=== PATIENT | female | born 1995 | race Caucasian/White ===

== ENCOUNTER → 2017-08-01 | Outpatient (CLI) | payer OTHER ==
[2017-08-01 14:05] LABS: BASO % 0.2 % (0.0-1.0); EOS % 0.5 % (0.0-3.0); HEMATOCRIT 38.6 % (36.0-47.0); IMMATURE GRANULOCYTE % 0.4 % (0-3.0); LYMPH # 1.2 10^3/uL (1.5-6.5); LYMPH % 14.5 % (24.0-44.0); MEAN CORPUSCULAR HEMOGLOBIN 30.2 pg (27.0-33.0); MEAN CORPUSCULAR HGB CONC 33.7 g/dl (32.0-36.5); MEAN CORPUSCULAR VOLUME 89.8 fl (80.0-96.0); MONO # 0.5 10^3/uL (0.0-0.8); MONO % 6.1 % (0.0-5.0); NEUTROPHILS # 6.7 10^3/uL (1.8-7.7); NEUTROPHILS % 78.3 % (36.0-66.0); PLATELET COUNT, AUTOMATED 143 10^3/uL (150-450); RED CELL DISTRIBUTION WIDTH 12.7 % (11.5-14.5); WHITE BLOOD COUNT 8.5 10^3/uL (4.0-10.0)
[2017-08-01 17:26] LABS: CHLAMYDIA DNA AMPLIFICATION NEGATIVE (NEGATIVE); GC DNA AMPLIFICATION NEGATIVE (NEGATIVE)
[2017-08-02 12:01] LABS: RUBELLA IgG QUALITATIVE IMMUNE (IMMUNE)
[2017-08-02 12:07] LABS: HBsAg Prenatal NEGATIVE (NEGATIVE)
[2017-08-02 12:28] LABS: HEPATITIS C VIRUS ABY INDEX 0.1 INDEX (<0.8)
[2017-08-02 12:33] LABS: HIV 1&2 SCREEN CENTAUR NEGATIVE (NEGATIVE)
== END ==
LOC: M SMT 11:21
DX: Z36.89 Encounter for other specified antenatal screening (principal); Z3A.09 9 weeks gestation of pregnancy
CPT/HCPCS: 86762

== ENCOUNTER → 2017-10-10 | Outpatient (CLI) | payer OTHER | LOC: M RAD 09:08 | DX: Z34.82 Encounter for supervision of other normal pregnancy, second trimester (principal); Z36.89 Encounter for other specified antenatal screening; Z3A.19 19 weeks gestation of pregnancy | CPT/HCPCS: 76811 ==

== ENCOUNTER → 2017-11-11 | Outpatient (CLI) | payer OTHER | LOC: M RAD 07:28 | DX: Z36.9 Encounter for antenatal screening, unspecified (principal); Z3A.24 24 weeks gestation of pregnancy | CPT/HCPCS: 76816 ==

== ENCOUNTER 2017-11-28 08:03 | Outpatient (CLI) | payer OTHER ==
[2017-11-28 09:06] LABS: BEDSIDE GLUCOSE 113 MG/DL (70-105)
[2017-11-28 10:24] LABS: HEMATOCRIT 32.5 % (36.0-47.0); HEMOGLOBIN 10.6 g/dl (12.0-15.5); MEAN CORPUSCULAR HEMOGLOBIN 30.4 pg (27.0-33.0); MEAN CORPUSCULAR HGB CONC 32.6 g/dl (32.0-36.5); MEAN CORPUSCULAR VOLUME 93.1 fl (80.0-96.0); RED BLOOD COUNT 3.49 10^6/uL (4.00-5.40); RED CELL DISTRIBUTION WIDTH 12.7 % (11.5-14.5); WHITE BLOOD COUNT 10.9 10^3/uL (4.0-10.0)
[2017-11-28 11:19] LABS: PLATELET COUNT, AUTOMATED 84 10^3/uL (150-450)
[2017-11-28 11:20] LABS: IMMATURE PLATELET FRACTION % 20.1 % (0.0-9.6); PLATELET F 98
== END 2017-11-28 10:46 | disposition home or self-care (01) ==
LOC: M LDO 08:03
DX: O99.412 Diseases of the circulatory system complicating pregnancy, second trimester (principal); R00.2 Palpitations; R42 Dizziness and giddiness; Z3A.26 26 weeks gestation of pregnancy
CPT/HCPCS: G0463

== ENCOUNTER → 2017-12-13 | Outpatient (CLI) | payer OTHER ==
[2017-12-13 13:44] LABS: HEMATOCRIT 33.2 % (36.0-47.0); HEMOGLOBIN 10.7 g/dl (12.0-15.5); MEAN CORPUSCULAR HEMOGLOBIN 30.3 pg (27.0-33.0); MEAN CORPUSCULAR HGB CONC 32.2 g/dl (32.0-36.5); MEAN CORPUSCULAR VOLUME 94.1 fl (80.0-96.0); RED BLOOD COUNT 3.53 10^6/uL (4.00-5.40); RED CELL DISTRIBUTION WIDTH 13.8 % (11.5-14.5); WHITE BLOOD COUNT 8.1 10^3/uL (4.0-10.0)
[2017-12-13 13:54] LABS: PLATELET COUNT, AUTOMATED 81 10^3/uL (150-450)
[2017-12-13 13:57] LABS: GLUCOSE CHALLENGE TEST 1 HOUR 108 MG/DL (LESS THAN 140)
== END ==
LOC: M SMT 09:10
DX: Z36.89 Encounter for other specified antenatal screening (principal)
CPT/HCPCS: 82950

== ENCOUNTER → 2018-01-01 | Outpatient (CLI) | payer OTHER ==
[2018-01-01 18:37] LABS: HEMATOCRIT 34.7 % (36.0-47.0); HEMOGLOBIN 11.1 g/dl (12.0-15.5); MEAN CORPUSCULAR HEMOGLOBIN 29.8 pg (27.0-33.0); RED BLOOD COUNT 3.73 10^6/uL (4.00-5.40); RED CELL DISTRIBUTION WIDTH 13.3 % (11.5-14.5); WHITE BLOOD COUNT 8.3 10^3/uL (4.0-10.0)
[2018-01-01 18:46] LABS: PLATELET COUNT, AUTOMATED 94 10^3/uL (150-450)
[2018-01-01 18:51] LABS: IMMATURE PLATELET FRACTION % 22.6 % (0.0-9.6)
== END ==
LOC: M SMT 13:37
DX: Z34.83 Encounter for supervision of other normal pregnancy, third trimester (principal); Z36.89 Encounter for other specified antenatal screening
CPT/HCPCS: 85049

== ENCOUNTER → 2018-01-30 | Outpatient (REF) | payer OTHER | LOC: M LAB REF 13:06 | DX: O99.013 Anemia complicating pregnancy, third trimester (principal) ==

== ENCOUNTER → 2018-01-30 | Outpatient (CLI) | payer OTHER ==
[2018-01-30 13:41] LABS: BASO % 0.3 % (0.0-1.0); EOS % 0.5 % (0.0-3.0); HEMATOCRIT 33.5 % (36.0-47.0); HEMOGLOBIN 10.8 g/dl (12.0-15.5); IMMATURE GRANULOCYTE % 0.8 % (0-3.0); LYMPH # 1.3 10^3/uL (1.5-6.5); MEAN CORPUSCULAR HEMOGLOBIN 29.3 pg (27.0-33.0); MEAN CORPUSCULAR HGB CONC 32.2 g/dl (32.0-36.5); MONO # 0.5 10^3/uL (0.0-0.8); NEUTROPHILS # 5.4 10^3/uL (1.8-7.7); NEUTROPHILS % 73.4 % (36.0-66.0); RED BLOOD COUNT 3.68 10^6/uL (4.00-5.40); RED CELL DISTRIBUTION WIDTH 13.2 % (11.5-14.5); WHITE BLOOD COUNT 7.4 10^3/uL (4.0-10.0)
[2018-01-30 13:47] LABS: PLATELET COUNT, AUTOMATED 87 10^3/uL (150-450)
[2018-01-30 13:48] LABS: IMMATURE PLATELET FRACTION % 26.3 % (0.0-9.6)
== END ==
LOC: M SMT 10:27
DX: O99.013 Anemia complicating pregnancy, third trimester (principal)
CPT/HCPCS: 85049

== ENCOUNTER → 2018-02-17 | Outpatient (CLI) | payer OTHER ==
[~2018-02-17] MED LIST: FERR325T3 PO; IBUP-1114 PO; MAPA500T17 PO; PRED20TA PO; PRENTAB9 PO
[2018-02-17 13:24] LABS: HEMATOCRIT 32.1 % (36.0-47.0); HEMOGLOBIN 10.3 g/dl (12.0-15.5); MEAN CORPUSCULAR HEMOGLOBIN 28.9 pg (27.0-33.0); MEAN CORPUSCULAR HGB CONC 32.1 g/dl (32.0-36.5); MEAN CORPUSCULAR VOLUME 89.9 fl (80.0-96.0); RED BLOOD COUNT 3.57 10^6/uL (4.00-5.40); WHITE BLOOD COUNT 8.2 10^3/uL (4.0-10.0)
[2018-02-17 13:26] LABS: PLATELET COUNT, AUTOMATED 70 10^3/uL (150-450)
== END ==
LOC: M SMT 09:28
PROVIDERS: ATTEND Obstetrics & Gynecology
DX: O99.013 Anemia complicating pregnancy, third trimester (principal)

== ENCOUNTER → 2018-02-21 | Outpatient (CLI) | payer OTHER ==
[~2018-02-21] MED LIST changes: -MAPA500T17 PO; +MAPA500T2 PO
[2018-02-21 13:12] LABS: HEMATOCRIT 32.1 % (36.0-47.0); HEMOGLOBIN 10.3 g/dl (12.0-15.5); MEAN CORPUSCULAR HEMOGLOBIN 28.7 pg (27.0-33.0); MEAN CORPUSCULAR HGB CONC 32.1 g/dl (32.0-36.5); MEAN CORPUSCULAR VOLUME 89.4 fl (80.0-96.0); RED BLOOD COUNT 3.59 10^6/uL (4.00-5.40); WHITE BLOOD COUNT 10.6 10^3/uL (4.0-10.0)
[2018-02-21 13:19] LABS: PLATELET COUNT, AUTOMATED 80 10^3/uL (150-450)
== END ==
LOC: M SMT 11:38
PROVIDERS: ATTEND Obstetrics & Gynecology
DX: D69.6 Thrombocytopenia, unspecified (principal)

== ENCOUNTER 2018-03-05 04:46 | Inpatient (IN) | payer OTHER ==
[2018-03-05] VITALS (26 sets, daily range): BP systolic 121–170; BP diastolic 75–119
[~2018-03-05] VITALS: Ht 162.6 cm; Wt 81.7 kg
[~2018-03-05 04:46] MED LIST changes: -IBUP-1114 PO; -MAPA500T2 PO; -PRED20TA PO
[2018-03-05] MEDS ORDERED: PRED20TA PO (05:13)
[2018-03-05] MEDS ORDERED: LACTATED RINGER'S 1000 ML IV STA (05:20)
[2018-03-05] MEDS ORDERED: PENICILLIN G POTASSIUM IV 5 MU in D5W MINI-BAG PLUS 100 ML IV STA (05:20)
--- NOTE | 2018-03-05 05:47 | NUR ---
L&D H&P HPI: 23 year old at 40+1 weeks estimated gestation. Expected date of confinement: 03/04/18. dated by LMP, consistent with first TM US. Presents today complaining of frequent, painful contractions for the past several hours. Denies vaginal bleeding, loss of fluid. Reports regular movement. course complicated by: Thrombocytopenia: gestational vs ITP. Plts on 02/28: 88K (oneida of 70K on 02/17), taking Prednisone 40mg daily. First TM plts: 143k Anemia, taking FeSO4 labs: Blood type A+, antibody screen negative, rubella immune, VDRL nonreactive , hepatitis B surface antigen negative, HIV negative, hepatitis C antibody negative, GC/CT negative, aneuploidy/maternal serum screening: not done, 1 hour glucose challenge test: 108, GBS positive Vaccinations: Tdap 02/05/18 Radiology/OB US: no anomalies or placental abnormalities detected. History Past medical history: none Surgical history: tympanostomy Medications: PNV Allergies: NKDA [employer] history: no dysplasia or STI/gHSV OB history: G1 Social history: no t/e/d Family history: no MR or VTE Objective Vitals: Normotensive, normal heart rate, afebrile Heart: Regular rate and rhythm. No murmurs, rubs or gallops. Lungs: Clear to auscultation bilaterally. No wheezes, crackles, rales or rhonchi. Abdomen: Uterine fundal height consistent with dates. No guarding or rebound tenderness. Extremities: No clubbing, cyanosis or edema. Normal deep tendon reflexes. Sterile vaginal exam: 5 cm, 90 %effacement, -3 station, cephalic, intact External monitoring: heart rate category 1 Tocodynamometer: contractions occurring every 2-4 min Assessment/Plan 23 year old at 40+1 weeks gestation. Diagnosis: active labor at term, thrombocytopenia. Reassuring and maternal status. -Admit to labor and delivery with routine labs and orders -External monitoring and tocodynamometer -Pediatrics and anesthesia consultations as needed. -GBS prophylaxis with IV penicillin Dr. Naeem Cuellar, DO, FACOG
[2018-03-05 06:28] LABS: HEMATOCRIT 32.1 % (36.0-47.0); HEMOGLOBIN 10.2 g/dl (12.0-15.5); MEAN CORPUSCULAR HEMOGLOBIN 27.7 pg (27.0-33.0); MEAN CORPUSCULAR HGB CONC 31.8 g/dl (32.0-36.5); MEAN CORPUSCULAR VOLUME 87.2 fl (80.0-96.0); RED BLOOD COUNT 3.68 10^6/uL (4.00-5.40); WHITE BLOOD COUNT 11.9 10^3/uL (4.0-10.0)
[2018-03-05 06:58] LABS: PLATELET COUNT, AUTOMATED 64 10^3/uL (150-450)
[2018-03-05] MEDS ORDERED: BUTORPHANOL 2 MG/ML INJ (J0595) IV ONE (07:15)
[2018-03-05] MEDS ORDERED: PROMETHAZINE INJ 25 MG/ML VIAL (J2550) IV ONE (07:15)
[2018-03-05] MEDS: LR 1,000 ML IV SCH ×2 (07:41→15:47)
[2018-03-05] MEDS ORDERED: **PENDING PCN ENTRY XX SCH (09:00)
[2018-03-05 09:31] LABS: ALT/SGPT 17 U/L (12-78); BILIRUBIN,TOTAL 0.5 MG/DL (0.2-1.0); CREATININE FOR GFR 0.86 MG/DL (0.55-1.30); GLOMERULAR FILTRATION RATE > 60.0 (>60); LDH LACTATE DEHYDROGENASE 198 U/L (84-246); URIC ACID 6.6 MG/DL (2.6-6.0)
[2018-03-05 09:56] LABS: TOTAL PROTEIN,RANDOM URINE 48.2 MG/DL (0.0-12.0)
[2018-03-05] MEDS: PENICILLIN G POTASSIUM IV 2.5 MU in APPROPRIATE DILUENT 1 EA IV SCH ×2 (09:58→14:09)
[2018-03-05] MEDS ORDERED: CALCIUM CARBONATE 500 MG CHEW U/D PO PRN (11:15)
[2018-03-05] MEDS ORDERED: OXYTOCIN 30 UNITS IN 0.9% NaCl 500ML IV BAG (J2590) As Ordered ONE (16:28)
[2018-03-05 18:27] LABS: CORD GAS ABE A -8.5; CORD GAS ABE V -7.3; CORD GAS HCO3 A 21.2 MEQ/L; CORD GAS HCO3 V 17.4 MEQ/L; CORD GAS O2 SAT A 43.4 %; CORD GAS O2 SAT V 80.8 %; CORD GAS PCO2 A 59.3 mmHg; CORD GAS PCO2 V 33.9 mmHg; CORD GAS PH A 7.171 UNITS; CORD GAS PH V 7.329 UNITS; CORD GAS PO2 A 21.5 mmHg; CORD GAS PO2 V 36.1 mmHg; CORD GAS SBC A 16.5 MEQ/L; CORD GAS SBC V 18.3 MEQ/L; CORD GAS TCO2 V 18.5 MEQ/L
[2018-03-05] MEDS ORDERED: LIDOCAINE 1% MDV 20ML VIAL SC ONE (19:00)
--- NOTE | 2018-03-05 19:25 | DN ---
DATE OF DELIVERY: 03/05/2018 Lynne is a 23-year-old 1, para 1-0-0-1 now admitted to labor and delivery in active labor. She coped with her labor with physiological coping mechanisms. She progressed to full dilation at 1716. She pushed to a normal spontaneous vaginal delivery of a live male infant in occiput anterior (OA) position with restitution to left occiput transverse (LOT) position at 1759. There was no nuchal cord. The shoulders delivered with gentle downward traction and the corpus immediately followed. [place] male was placed on maternal abdomen, crying and active. Mouth and nares were bulb suctioned. Cord was clamped times two and cut by the father of the baby under my direction. Cord gases were obtained. Arterial cord pH 7.171, base excess -8.5. Venous cord pH 7.329, base excess -7.3. Cord blood was also obtained. Uterine hemostasis was achieved with IV Pitocin rapid infusion and uterine fundal massage. Estimated blood loss 350 mL. Perineum and vagina inspected and noted to have a first-degree midline laceration and a left labial laceration. Laceration was infiltrated with 1% lidocaine and repaired with #3-0 Rapide in the usual fashion. The male weighed 8 pounds 15 ounces, 4050 grams, at 8 and 9. Mom is going to breastfeed her son and the family have named him Jesus. At the close of delivery lap counts, needle counts, instrument counts were correct and verified.
[2018-03-05] MEDS ORDERED: OXYTOCIN DRIP 30 UNITS in APPROPRIATE DILUENT 1 EA IV SCH (21:47)
[2018-03-05] MEDS ORDERED: METHYLERGONOVINE MALEATE 0.2 MG TAB PO PRN (22:00)
[2018-03-05] MEDS ORDERED: DIBUCAINE 1% OINTMENT 30GM TOP PRN (22:00)
[2018-03-05] MEDS ORDERED: RHOGAM 300 MCG (1500 IU) INJ (J2790) IM SCH (22:00)
[2018-03-05] MEDS ORDERED: DOCUSATE SODIUM 100 MG CAP PO PRN (22:00)
[2018-03-05] MEDS ORDERED: MEASLES,MUMPS,RUBELLA VACCINE INJ (MMR-II) (90707) SC SCH (22:00)
[2018-03-05] MEDS: ACETAMINOPHEN 500 MG TAB PO PRN (22:13)
[2018-03-06] MEDS: IBUPROFEN 800 MG TAB PO PRN ×3 (02:43→22:37)
--- NOTE | 2018-03-06 05:46 | IPNPDOC ---
Text Note Date of Service The patient was seen on 03/06/18. NOTE Day 1 Status post spontaneous vaginal delivery Subjective Pain is controlled. Lochia decreasing. Voiding spontaneously. Passing flatus. Tolerating a regular diet. Ambulating without assistance. Denies any subjective fever/chills/nausea/headache/visual changes/shortness of breath/chest pain. Breast feeding. Objective Vitals: Normotensive, normal heart rate, afebrile, adequate urine output. Heart: regular, rate, and rhythm. no murmurs/gallops/rubs Lungs: clear to auscultation bilaterally, no wheezes/crackles/rales/ronchi Abd: soft, nontender, nondistended, uterine fundus is at the umbilicus and firm. Ext: no significant edema, nontender, negative Alma's bilaterally. Assessment/Plan: Day 1. Recovering well. Hemodynamically stable, afebrile, pain control adequate. -Routine care -Potential discharge to tomorrow -Routine infectious, fever, pain, and bleeding precautions reviewed VS,Hoang, I+O VSHoang, I+O Laboratory Tests 03/05/18 06:12 Red Blood Count 3.68 L, Mean Corpuscular Volume 87.2, Mean Corpuscular Hemoglobin 27.7, Mean Corpuscular Hemoglobin Concent 31.8 L, Red Cell Distribution Width 13.5, Aspartate Amino Transf (AST/SGOT) 14, Alanine Aminotransferase (ALT/SGPT) 17, Lactate Dehydrogenase 198, Total Bilirubin 0.5, Uric Acid 6.6 H Vital Signs Date Time Temp Pulse Resp B/P (MAP) Pulse Ox O2 Delivery O2 Flow Rate FiO2 03/05/18 21:40 99.4 78 18 131/83 (99) 98 Room Air I&O- Last 24 Hours up to 6 AM 03/06/18 06:00 Intake Total 2500 ml Output Total 700 ml Balance 1800 ml GME ATTESTATION GME ATTESTATION My faculty preceptor for this patient encounter was physically present during the encounter and was fully available. All aspects of the patient interview, examination, medical decision making process, and medical care plan development were reviewed and approved by the faculty preceptor. The faculty preceptor is aware and concurs with the plan as stated in the body of this note and will attest to such by his/her cosignature. STEFFEN LANCASTER DO Mar 06, 2018 05:46
[2018-03-06 06:12] VITALS: BP 123/77
[2018-03-06] MEDS ORDERED: LIDOCAINE 1% MDV 20ML VIAL As Ordered ONE (07:18)
[2018-03-06] MEDS: PRENATAL VITAMINS CHEWABLE TABLET PO SCH (08:17)
[2018-03-06] MEDS: ACETAMINOPHEN 500 MG TAB PO PRN ×2 (08:17→19:52)
[2018-03-06 18:00] VITALS: BP 119/74
[2018-03-07 05:47] VITALS: BP 134/80
[2018-03-07] MEDS: PRENATAL VITAMINS CHEWABLE TABLET PO SCH (08:13)
[2018-03-07] MEDS ORDERED: ADACEL/BOOSTRIX VACCINE (DIPHTH/PERTUSS/ACELL/TETANUS)0.5ML SYR (90715) IM ONE (09:00)
[2018-03-07] MEDS: IBUPROFEN 800 MG TAB PO PRN (10:01)
[2018-03-07] MEDS ORDERED: MAPA500T17 PO (11:05)
[2018-03-07] MEDS ORDERED: IBUP-1114 PO (11:05)
== END 2018-03-07 12:20 | disposition home or self-care (01) | DRG 806 ==
LOC: M LDO 04:46 → M LDI 05:22 → M OBS 20:00
PROVIDERS: ADMIT Obstetrics & Gynecology; ATTEND Obstetrics & Gynecology
PROC: 10E0XZZ Delivery of Products of Conception, External Approach (ICD-10-PCS; principal; 2018-03-05)
PROC: 0HQ9XZZ Repair Perineum Skin, External Approach (ICD-10-PCS; 2018-03-05)
DX: O48.0 Post-term pregnancy (principal); Z37.0 Single live birth; O99.12 Other diseases of the blood and blood-forming organs and certain disorders involving the immune mechanism complicating childbirth; O70.0 First degree perineal laceration during delivery; Z3A.40 40 weeks gestation of pregnancy; D69.6 Thrombocytopenia, unspecified

== ENCOUNTER → 2018-04-21 | Outpatient (CLI) | payer OTHER ==
[~2018-04-21] MED LIST changes: +IBUP-1114 PO; +MAPA500T2 PO; +PRED20TA PO
[2018-04-21 17:42] LABS: BASO % 0.5 % (0.0-1.0); EOS # 0.1 10^3/uL (0.0-0.50); EOS % 1.2 % (0.0-3.0); HEMATOCRIT 40.6 % (36.0-47.0); HEMOGLOBIN 12.9 g/dl (12.0-15.5); LYMPH # 2.2 10^3/uL (1.5-6.5); LYMPH % 36.8 % (24.0-44.0); MEAN CORPUSCULAR HEMOGLOBIN 27.5 pg (27.0-33.0); MEAN CORPUSCULAR HGB CONC 31.8 g/dl (32.0-36.5); MEAN CORPUSCULAR VOLUME 86.6 fl (80.0-96.0); MONO # 0.4 10^3/uL (0.0-0.8); MONO % 6.7 % (0.0-5.0); NEUTROPHILS # 3.2 10^3/uL (1.8-7.7); NEUTROPHILS % 54.5 % (36.0-66.0); PLATELET COUNT, AUTOMATED 161 10^3/uL (150-450); RED BLOOD COUNT 4.69 10^6/uL (4.00-5.40); WHITE BLOOD COUNT 5.9 10^3/uL (4.0-10.0)
== END ==
LOC: M SMT 14:46
PROVIDERS: ATTEND Advanced Practice Midwife
DX: D69.6 Thrombocytopenia, unspecified (principal)

== ENCOUNTER → 2018-05-28 | Outpatient (REF) | payer OTHER | LOC: M LAB REF 17:21 | PROVIDERS: ATTEND Advanced Practice Midwife | DX: Z12.4 Encounter for screening for malignant neoplasm of cervix (principal) ==

== ENCOUNTER → 2020-03-02 | Outpatient (CLI) | payer SELFPAY | LOC: M LABSMTC 10:32 | PROVIDERS: ATTEND Pediatrics | DX: Z20.828 Contact with and (suspected) exposure to other viral communicable diseases (principal) ==

== ENCOUNTER → 2020-07-13 | Outpatient (REF) | payer OTHER | LOC: M SFHCWAGY 17:22 | PROVIDERS: ATTEND Advanced Practice Midwife | DX: Z12.4 Encounter for screening for malignant neoplasm of cervix (principal) | CPT/HCPCS: G0123; G0463 ==

== ENCOUNTER → 2020-08-24 | Outpatient (REF) | payer OTHER ==
[2020-08-24 16:16] LABS: HEMATOCRIT 39.6 % (36.0-47.0); HEMOGLOBIN 12.9 g/dl (12.0-15.5); MEAN CORPUSCULAR HEMOGLOBIN 29.5 pg (27.0-33.0); MEAN CORPUSCULAR HGB CONC 32.6 g/dl (32.0-36.5); MEAN CORPUSCULAR VOLUME 90.6 fl (80.0-96.0); PLATELET COUNT, AUTOMATED 170 10^3/uL (150-450); RED BLOOD COUNT 4.37 10^6/uL (4.00-5.40); WHITE BLOOD COUNT 8.9 10^3/uL (4.0-10.0)
[2020-08-24 17:06] LABS: HIV 1&2 SCREEN CENTAUR NEGATIVE (NEGATIVE)
== END ==
LOC: M PLALAB 13:43
PROVIDERS: ATTEND Advanced Practice Midwife
DX: O99.341 Other mental disorders complicating pregnancy, first trimester (principal)

== ENCOUNTER → 2020-11-11 | Outpatient (CLI) | payer OTHER ==
--- NOTE | 2020-11-11 10:38 | REP ---
INDICATION: ANATOMY. COMPARISON: None. TECHNIQUE: Transabdominal obstetric sonography. FINDINGS: Scanning through the gravid uterus demonstrates a viable single intrauterine gestation in transverse lie. motion is observed and heart rate is recorded at 142 beats per minute. A anterior placenta is seen, grade 1, without evidence of placenta previa. Closed cervical length is measured at 4.6 cm transabdominally. No extrauterine abnormality is observed. Amniotic fluid is subjectively normal. No anomaly is seen. The following anatomic structures are identified and felt to be sonographically unremarkable: cranium, choroid plexus, cavum, cerebellum and posterior fossa, face and profile, lungs, four-chamber heart with left and right ventricular outflow tract views, diaphragm, left-sided stomach, abdominal wall cord insertion, three-vessel umbilical cord, kidneys and bladder, spine, and upper and lower extremities. Biometry chart: BPD 4.7 cm, 20 weeks 2 days Head circumference 18.1 cm, 20 weeks 4 days Abdominal circumference 15.7 cm, 20 weeks 6 days Femur length 3.4 cm 20, 20 weeks 6 days Humeral length 3.1 cm, 20 weeks 1 day HC AC ratio normal 1.16 Cephalic index normal 0.71 Estimated weight 376 g, 0 lb 13 oz, 72nd percentile for 20 weeks 2 days IMPRESSION: Viable single intrauterine gestation at 20 weeks 4 days by today's composite sonographic criteria. SUYAPA by today's sonography March 27, 2021. No complication identified. Expected gestational age estimate from known SUYAPA of 29 March 2021 is 20 weeks 2 days. <Electronically signed by Chaka Castillo > 11/11/20 [id number]
== END ==
LOC: M WHC 08:50
PROVIDERS: ATTEND Obstetrics & Gynecology
DX: O99.342 Other mental disorders complicating pregnancy, second trimester (principal); Z3A.20 20 weeks gestation of pregnancy; F32.9 Major depressive disorder, single episode, unspecified

== ENCOUNTER → 2020-12-09 | Outpatient (CLI) | payer OTHER ==
[2020-12-09 13:52] LABS: HEMATOCRIT 36.4 % (36.0-47.0); HEMOGLOBIN 11.7 g/dl (12.0-15.5); MEAN CORPUSCULAR HEMOGLOBIN 30.3 pg (27.0-33.0); MEAN CORPUSCULAR HGB CONC 32.1 g/dl (32.0-36.5); MEAN CORPUSCULAR VOLUME 94.3 fl (80.0-96.0); PLATELET COUNT, AUTOMATED 128 10^3/uL (150-450); RED BLOOD COUNT 3.86 10^6/uL (4.00-5.40); WHITE BLOOD COUNT 7.7 10^3/uL (4.0-10.0)
[2020-12-09 15:38] LABS: GC DNA AMPLIFICATION NEGATIVE (NEGATIVE)
== END ==
LOC: M PLALAB 10:56
PROVIDERS: ATTEND Specialist
DX: Z34.82 Encounter for supervision of other normal pregnancy, second trimester (principal)

== ENCOUNTER → 2021-01-06 | Outpatient (CLI) | payer OTHER ==
[2021-01-06 13:33] LABS: HEMATOCRIT 34.9 % (36.0-47.0); HEMOGLOBIN 11.4 g/dl (12.0-15.5); MEAN CORPUSCULAR HEMOGLOBIN 30.6 pg (27.0-33.0); MEAN CORPUSCULAR HGB CONC 32.7 g/dl (32.0-36.5); MEAN CORPUSCULAR VOLUME 93.6 fl (80.0-96.0); PLATELET COUNT, AUTOMATED 109 10^3/uL (150-450); RED BLOOD COUNT 3.73 10^6/uL (4.00-5.40); WHITE BLOOD COUNT 8.3 10^3/uL (4.0-10.0)
== END ==
LOC: M PLALAB 11:31
PROVIDERS: ATTEND Specialist
DX: D69.6 Thrombocytopenia, unspecified (principal)

== ENCOUNTER → 2021-01-23 | Outpatient (REF) | LOC: M LABSMTC 09:25 | PROVIDERS: ATTEND Family Medicine | DX: Z20.822 Contact with and (suspected) exposure to COVID-19 (principal) ==

== ENCOUNTER → 2021-02-27 | Outpatient (CLI) | payer OTHER ==
[~2021-02-27] MED LIST changes: +TUMS750C22 PO; +UNIS25TA3 PO; +ZOLO50TA PO
[2021-02-27 13:27] LABS: HEMATOCRIT 35.6 % (36.0-47.0); HEMOGLOBIN 11.6 g/dl (12.0-15.5); MEAN CORPUSCULAR HEMOGLOBIN 30.3 pg (27.0-33.0); MEAN CORPUSCULAR HGB CONC 32.6 g/dl (32.0-36.5); RED BLOOD COUNT 3.83 10^6/uL (4.00-5.40); WHITE BLOOD COUNT 8.2 10^3/uL (4.0-10.0)
[2021-02-27 14:00] LABS: PLATELET COUNT, AUTOMATED 80 10^3/uL (150-450)
== END ==
LOC: M PLALAB 10:27
PROVIDERS: ATTEND Obstetrics & Gynecology
DX: O99.113 Other diseases of the blood and blood-forming organs and certain disorders involving the immune mechanism complicating pregnancy, third trimester (principal)

== ENCOUNTER → 2021-02-28 | Outpatient (REF) | payer OTHER ==
[~2021-02-28] MED LIST changes: -TUMS750C22 PO; -UNIS25TA3 PO; -ZOLO50TA PO
== END ==
LOC: M SFHCWAGY 17:16
PROVIDERS: ATTEND Obstetrics & Gynecology
DX: Z36.85 Encounter for antenatal screening for Streptococcus B (principal)
CPT/HCPCS: 87081; G0463

== ENCOUNTER → 2021-03-20 | Outpatient (CLI) | payer OTHER ==
[2021-03-20 13:17] LABS: HEMATOCRIT 36.8 % (36.0-47.0); MEAN CORPUSCULAR HEMOGLOBIN 30.1 pg (27.0-33.0); MEAN CORPUSCULAR HGB CONC 32.6 g/dl (32.0-36.5); MEAN CORPUSCULAR VOLUME 92.2 fl (80.0-96.0); PLATELET COUNT, AUTOMATED 85 10^3/uL (150-450); RED BLOOD COUNT 3.99 10^6/uL (4.00-5.40); WHITE BLOOD COUNT 11.6 10^3/uL (4.0-10.0)
== END ==
LOC: M PLALAB 11:51
PROVIDERS: ATTEND Obstetrics & Gynecology
DX: O99.113 Other diseases of the blood and blood-forming organs and certain disorders involving the immune mechanism complicating pregnancy, third trimester (principal); Z3A.00 Weeks of gestation of pregnancy not specified

== ENCOUNTER 2021-03-22 08:32 | Inpatient (IN) | payer OTHER ==
[2021-03-22] VITALS (21 sets, daily range): BP systolic 108–158; BP diastolic 58–102
[~2021-03-22] VITALS: Ht 162.6 cm; Wt 83.1 kg
[2021-03-22] MEDS ORDERED: HOME MED LIST COMPLETE! XX SCH (09:00)
[2021-03-22] MEDS ORDERED: ZOLO50TA PO (09:04)
[2021-03-22] MEDS ORDERED: UNIS25TA3 PO (09:04)
[2021-03-22] MEDS ORDERED: PRED20TA PO (09:04)
[2021-03-22] MEDS ORDERED: TUMS750C22 PO (09:04)
[2021-03-22] MEDS ORDERED: CARBOPROST TROMETHAMINE 250 MCG/ML AMP IM PRN (10:05)
[2021-03-22] MEDS ORDERED: LIDOCAINE 1% MDV 20ML VIAL INFIL PRN (10:05)
[2021-03-22] MEDS ORDERED: METHYLERGONOVINE MALEATE 0.2 MG/ML VIAL (J2210) IM PRN (10:05)
[2021-03-22] MEDS ORDERED: OXYTOCIN DRIP 30 UNITS in IV 1 EA IV PRN ×4 (10:05)
[2021-03-22] MEDS ORDERED: TRANEXAMIC ACID INJection 1,000 MG in NS 100 ML IV PRN (10:05)
[2021-03-22] MEDS: miSOPROStol 50MCG 1/2 TABLET PO SCH ×2 (10:28→15:01)
[2021-03-22 10:35] LABS: HEMATOCRIT 36.6 % (36.0-47.0); MEAN CORPUSCULAR HEMOGLOBIN 30.5 pg (27.0-33.0); MEAN CORPUSCULAR HGB CONC 32.8 g/dl (32.0-36.5); MEAN CORPUSCULAR VOLUME 93.1 fl (80.0-96.0); RED BLOOD COUNT 3.93 10^6/uL (4.00-5.40); WHITE BLOOD COUNT 11.2 10^3/uL (4.0-10.0)
[2021-03-22 10:37] LABS: PLATELET COUNT, AUTOMATED 95 10^3/uL (150-450)
[2021-03-22] MEDS ORDERED: predniSONE 20 MG TAB PO SCH ×2 (18:00→18:05)
[2021-03-22] MEDS ORDERED: OXYTOCIN DRIP 30 UNITS in IV 1 EA IV SCH (19:15)
[2021-03-22] MEDS: LR 1,000 ML IV SCH (19:37)
[2021-03-22 20:08] LABS: HEMATOCRIT 36.1 % (36.0-47.0); HEMOGLOBIN 11.9 g/dl (12.0-15.5); MEAN CORPUSCULAR HEMOGLOBIN 30.4 pg (27.0-33.0); MEAN CORPUSCULAR VOLUME 92.3 fl (80.0-96.0); PLATELET COUNT, AUTOMATED 94 10^3/uL (150-450); RED BLOOD COUNT 3.91 10^6/uL (4.00-5.40)
[2021-03-22] MEDS ORDERED: FENTANYL 2MCG/ML ROPIVACAINE 0.2% IN 0.9% NACL 100ML IVBAG As Ordered ONE (23:12)
[2021-03-22] MEDS ORDERED: ONDANSETRON 4MG/2ML VIAL IV PRN (23:45)
[2021-03-22] MEDS ORDERED: LACTATED RINGER'S 1000 ML IV PRN (23:45)
[2021-03-22] MEDS ORDERED: REFRIGERATOR IV KEYS XX PRN (23:45)
[2021-03-22] MEDS ORDERED: FENTANYL/ROPIVACAINE/NACL BAG 100 ML EPIDURAL SCH (23:45)
[2021-03-22] MEDS ORDERED: EPIDURAL COMMENT XX SCH (23:45)
[2021-03-22] MEDS ORDERED: ePHEDrine SULFATE 25 MG/5 ML(5MG/ML) SYRINGE IV PRN (23:45)
[2021-03-22] MEDS ORDERED: EPIDURAL/PCA KEYS XX PRN (23:45)
[2021-03-22] MEDS ORDERED: NALOXONE INJ 0.4MG/1ML VIAL (J2310 PER 1MG) IV PRN (23:45)
[2021-03-22] MEDS ORDERED: diphenhydrAMINE 50MG/ML VIAL (J1200) IV PRN (23:45)
[2021-03-23] VITALS (29 sets, daily range): BP systolic 95–144; BP diastolic 56–88
[2021-03-23] MEDS: LR 1,000 ML IV SCH (06:00)
[2021-03-23] MEDS ORDERED: ACETAMINOPHEN TAB 650MG DOSE (2X325MG) PO PRN (06:10)
[2021-03-23] MEDS ORDERED: DIBUCAINE 1% OINTMENT 30GM TOP PRN (06:10)
[2021-03-23] MEDS ORDERED: RHOGAM 300 MCG (1500 IU) INJ (J2790) IM SCH (06:10)
[2021-03-23] MEDS ORDERED: IBUPROFEN 800 MG TAB PO PRN (06:10)
[2021-03-23] MEDS ORDERED: DOCUSATE SODIUM 100MG CAPSULE PO PRN (06:10)
[2021-03-23] MEDS ORDERED: ACETAMINOPHEN 500 MG TAB PO PRN (06:10)
[2021-03-23] MEDS ORDERED: IBUPROFEN 600MG TAB PO PRN (06:10)
[2021-03-23] MEDS ORDERED: METHYLERGONOVINE MALEATE 0.2 MG TAB PO PRN (06:10)
[2021-03-23 06:44] LABS: HEMATOCRIT 35.1 % (36.0-47.0); HEMOGLOBIN 11.5 g/dl (12.0-15.5); MEAN CORPUSCULAR HEMOGLOBIN 30.7 pg (27.0-33.0); MEAN CORPUSCULAR HGB CONC 32.8 g/dl (32.0-36.5); MEAN CORPUSCULAR VOLUME 93.6 fl (80.0-96.0); RED BLOOD COUNT 3.75 10^6/uL (4.00-5.40); WHITE BLOOD COUNT 15.3 10^3/uL (4.0-10.0)
[2021-03-23 06:49] LABS: PLATELET COUNT, AUTOMATED 86 10^3/uL (150-450)
[2021-03-23] MEDS ORDERED: TRANEXAMIC ACID 100 MG/ML 10ML VIAL As Ordered ONE (08:55)
[2021-03-23] MEDS ORDERED: TRANEXAMIC ACID INJection 1,000 MG in D5W 100 ML IV ONE (08:55)
[2021-03-23] MEDS: PRENATAL VITAMINS CHEWABLE TABLET PO SCH (10:00)
[2021-03-23] MEDS: predniSONE 20 MG TAB PO SCH ×2 (10:35→20:03)
[2021-03-23] MEDS: SERTRALINE HCL 50 MG TAB PO SCH (13:12)
[2021-03-24 06:00] VITALS: BP 130/82
[2021-03-24] MEDS: PRENATAL VITAMINS CHEWABLE TABLET PO SCH (08:36)
[2021-03-24] MEDS: SERTRALINE HCL 50 MG TAB PO SCH (08:36)
[2021-03-24] MEDS: predniSONE 20 MG TAB PO SCH (08:36)
== END 2021-03-24 12:05 | disposition home or self-care (01) | DRG 807 ==
LOC: M LDI 08:32 → M OBS 03-23 10:40
PROVIDERS: ADMIT Advanced Practice Midwife; ATTEND Advanced Practice Midwife
PROC: 3E033VJ Introduction of Other Hormone into Peripheral Vein, Percutaneous Approach (ICD-10-PCS; 2021-03-22)
PROC: 10E0XZZ Delivery of Products of Conception, External Approach (ICD-10-PCS; principal; 2021-03-23)
DX: O99.12 Other diseases of the blood and blood-forming organs and certain disorders involving the immune mechanism complicating childbirth (principal); Z37.0 Single live birth; Z3A.39 39 weeks gestation of pregnancy; D69.6 Thrombocytopenia, unspecified; F32.A Depression, unspecified; F41.9 Anxiety disorder, unspecified; O99.344 Other mental disorders complicating childbirth; Z79.899 Other long term (current) drug therapy

== ENCOUNTER → 2022-02-27 | Outpatient (REF) ==
[~2022-02-27] MED LIST changes: +TUMS750C22 PO; +UNIS25TA3 PO; +ZOLO50TA PO
[2022-02-27 16:23] LABS: RSV AMPLIFICATION NEGATIVE (NEGATIVE)
== END ==
LOC: M EMP 15:14
PROVIDERS: ATTEND Family Medicine
DX: Z20.818 Contact with and (suspected) exposure to other bacterial communicable diseases (principal)